=== PATIENT | female | born 1985 | race African-American/Black ===

== ENCOUNTER 2016-09-21 07:37 | Emergency (ER) | payer OTHER ==
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
[2016-09-21 08:41] VITALS: BP 110/68
== END 2016-09-21 08:40 | disposition home or self-care (01) ==
LOC: ED 07:37
DX: K02.9 Dental caries, unspecified (principal)
CPT/HCPCS: 99283

== ENCOUNTER 2016-09-28 09:59 | Outpatient (CLI) | payer OTHER ==
[2016-09-28 10:16] LABS: BASOPHILS % 0.6 (0.0-1.5); EOSINOPHILS % 4.3 % (0.0-6.8); LYMPHOCYTES # 1.6 # k/uL (0.6-4.0); MONOCYTES # 0.3 # k/uL (0.0-0.9); MONOCYTES % 6.5 % (0.0-11.0); NEUTROPHILS # 2.3 # k/uL (1.4-7.7)
[2016-09-28 10:51] LABS: eGFR (African) > 60; eGFR (Non-African) > 60
[2016-09-28 10:58] LABS: MEAN CORPUSCULAR HEMOGLOBIN 15.6 pg (28.0-34.0)
[2016-09-28 11:01] LABS: ANISOCYTOSIS 1+ (NEGATIVE); HYPOCHROMASIA 2+ (NEGATIVE); TARGET CELLS 1+ (NEGATIVE)
[2016-09-28 22:11] LABS: SERUM IRON 6 ug/dL (37-145)
== END 2016-09-28 10:00 ==
LOC: LAB 09:59
PROVIDERS: ATTEND Physician Assistant
DX: Z00.00 Encounter for general adult medical examination without abnormal findings (principal); D64.9 Anemia, unspecified
CPT/HCPCS: 36415; 80053; 82728; 83540; 83550; 85025; 85045

== ENCOUNTER 2017-02-16 21:16 | Emergency (ER) | payer OTHER ==
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
[2017-02-16 22:23] VITALS: BP 116/73
== END 2017-02-16 22:10 | disposition home or self-care (01) ==
LOC: ED 21:16 → SUPCPDRO 21:16 → ED 22:10
DX: S00.03XA Contusion of scalp, initial encounter (principal); S70.02XA Contusion of left hip, initial encounter; X58.XXXA Exposure to other specified factors, initial encounter; Y09 Assault by unspecified means; Y93.9 Activity, unspecified; Y99.9 Unspecified external cause status
CPT/HCPCS: 70450; 70487; 72170; 99283

== ENCOUNTER 2017-02-22 07:47 | Emergency (ER) | payer OTHER ==
[2017-02-22] MEDS: METOCLOPRAMIDE HCL 5 MG TABLET PO ONE (08:23)
[2017-02-22] MEDS ORDERED: 0.9 % SODIUM CHLORIDE 1,000 ML IV ONE (08:23)
[2017-02-22] MEDS: HYOSCYAMINE SULFATE 0.125 MG TAB.SUBL SL ONE (08:23)
[2017-02-22] MEDS: 0.9 % SODIUM CHLORIDE 1,000 ML IV SCH (08:25)
[2017-02-22 08:27] LABS: BASOPHILS % 0.9 (0.0-1.5); EOSINOPHILS % 5.1 % (0.0-6.8); MEAN CORPUSCULAR VOLUME 76.1 fl (80.0-100.0); MONOCYTES % 5.6 % (0.0-11.0); NEUTROPHILS # 2.7 # k/uL (1.4-7.7)
[2017-02-22 08:42] LABS: eGFR (African) > 60; eGFR (Non-African) > 60
[2017-02-22] MEDS: MAGNESIUM HYDROXIDE 400 MG/5 ML 30ML UDC PO ONE (09:45)
[2017-02-22] MEDS: LACTULOSE 10 GM/15 ML UDC PO SCH (09:45)
[2017-02-22 09:47] VITALS: BP 98/49
--- NOTE | 2017-02-22 10:27 | Diagnostic Imaging Report ---
SHIRIN PEARCE [facility] [address] [facility] [address] [address] Report Submission Date: Feb 22, 2017 9:05:24 AM CDT Patient Study Name: ANAYELI PEREZ Date: Feb 22, 2017 8:33:27 AM CDT Modality Type: CR Gender: F Description: CHEST,ABDOMEN : 81 Institution: [facility] Physician: SHIRIN PEARCE Obstructive series with chest x-ray CLINICAL HISTORY: Low midline abdominal pain for few days. FINDINGS: Examination of the chest in single upright view demonstrates the lungs to be clear. Cardiovascular and mediastinal silhouettes are within normal limits. Bony thorax is intact. Examination of the abdomen in supine and upright views demonstrates gas and stool in the colon. There is no evidence of obstruction or free air. Properitoneal fat lines are preserved. Bony structures are intact. IMPRESSION: Stool throughout the colon. No acute changes. Electronically signed on Feb 22, 2017 9:05:24 AM CDT by: Ernesto DUNN
--- NOTE | 2017-02-22 13:36 | ED Physician Documentation ---
Abdominal Pain - HISTORIAN Historian: patient - HPI Stated Complaint: abd pain Chief Complaint: Abdominal Pain Onset: days ago (5) Duration: waxing, waning Timing: still present Context: denies: out of country travel, bad food, recent trauma Severity: moderate Quality: cramping Associated Symptoms: nausea Exacerbated by: nothing Relieved by: nothing Further Comments: no - ROS CONST: no problems GI/: constipation CVS/RESP: none EYES/ENT: none MS/SKIN/LYMPH: none NEURO/PSYCH: none - SOCIAL HX Smoking History: non-smoker Alcohol Use: none Drug Use: none - FAMILY HX Family History: no significant history - PAST HX Past History: other (anemia) Other History: other (chronic constipation) Surgeries/Procedures: Immunizations: referred to PCP Home Medications: Ambulatory Orders Medication Instructions Recorded Sertraline HCl [Zoloft] 100 mg PO [id number] 02/22/17 Allergies/Adverse Reactions: Allergies Allergy/AdvReac Type Severity Reaction Status Date / Time tramadol AdvReac Vomiting Verified 02/22/17 08:04 - VITAL SIGNS Vital Signs: Vital Signs Temp Pulse Resp BP Pulse Ox 98.8 F 62 20 98/49 100 02/22/17 09:45 02/22/17 09:45 02/22/17 09:45 02/22/17 09:45 02/22/17 09:45 - REVIEWED ASSESSMENTS Nursing Assessment Reviewed: Yes Vitals Reviewed: Yes Progress - Results/Orders Results/Orders: cbc, cmp, amylase, ua, aas ordered - Progress Progress: Pt. given 10 mg reglan p.o., 0.25 mg hyoscyamine p.o. and 1 liter NS iv in er. Discharged after 30 cc prune juice, 10 mg lactulose and 2400 mg mom in er. Critical Care Note - Critical Care Note Total Time (mins): 0 ED Results Lab/Radiology - Lab Results Lab Results: Lab Results 02/22/17 02/22/17 08:25 08:25 WBC 4.60 K/ul K/ul (4.00-12.00) RBC 4.09 M/ul M/ul (3.90-5.20) Hgb 9.0 g/dL L g/dL (12.0-16.0) Hct 31.1 % L % (34.5-46.5) MCV 76.1 fl L fl (80.0-100.0) MCH 22.0 pg L pg (28.0-34.0) MCHC 28.9 g/dL L g/dL (30.0-36.0) RDW 19.7 % H % (11.3-14.3) Plt Count 244 K/mm3 K/mm3 (130-400) Neut % (Auto) 58.5 % % (39.0-79.0) Lymph % (Auto) 27.7 % % (16.0-50.0) [place] % (Auto) 5.6 % % (0.0-11.0) Eos % (Auto) 5.1 % % (0.0-6.8) Baso % (Auto) 0.9 (0.0-1.5) Neut # (Auto) 2.7 # k/uL # k/uL (1.4-7.7) Lymph # (Auto) 1.3 # k/uL # k/uL (0.6-4.0) [place] # (Auto) 0.3 # k/uL # k/uL (0.0-0.9) Eos # (Auto) 0.2 # k/uL # k/uL (0.0-0.6) Baso # (Auto) 0.0 # k/uL # k/uL (0.0-0.5) Reactive Lymphs % 2.2 % % (0.0-5.0) Reactive Lymphs # 0.1 # k/uL # k/uL (0.0-0.8) Sodium 137 mmol/L mmol/L (136-145) Potassium 3.9 mmol/L mmol/L (3.5-5.0) Chloride 104 mmol/L mmol/L (98-110) Carbon Dioxide 29 mmol/L mmol/L (20-32) BUN 11 mg/dL mg/dL (10-26) Creatinine 0.7 mg/dL mg/dL (0.4-1.5) Est GFR ( Amer) > 60 (60 - ) Est GFR (Non-Af Amer) > 60 (60 - ) Glucose 94 mg/dL mg/dL (70-99) Calcium 9.3 mg/dL mg/dL (8.5-10.5) Total Bilirubin 0.6 mg/dL mg/dL (0.2-1.2) AST 20 U/L U/L (0-41) ALT 11 U/L U/L (0-45) Alkaline Phosphatase 69 U/L U/L (46-116) Total Protein 7.2 g/dL g/dL (6.0-8.5) Albumin 4.4 g/dL g/dL (3.0-5.5) Amylase 35 U/L U/L (20-104) - Radiology Radiology Impressions: aas shows constipation, no bowel obstruction - Orders Orders: ED Orders Category Date Time Status Further Nursing Orders 1T Care 02/22/17 09:44 Active ABD SERIES PA CHEST [RAD] Stat Exams 02/22/17 Completed AMYLASE Routine Lab 02/22/17 08:25 Completed CBC/PLATELET/DIFF Routine Lab 02/22/17 08:25 Completed CMP DAILY Lab 02/22/17 08:25 Completed URINALYSIS Routine Lab 02/22/17 08:18 Ordered 0.9 % Sodium Chloride [Normal Saline] 1,000 ml Med 02/22/17 08:30 Discontinued IV .Q1H 0.9 % Sodium Chloride [Normal Saline] 1,000 ml Med 02/22/17 08:23 Discontinued IV .STK-MED Hyoscyamine Sulfate [Oscimin Sl] Med 02/22/17 08:19 Discontinued 0.125 mg SL 1T ONE Lactulose [Enulose] Med 02/22/17 11:00 Discontinued 10 gm PO 1100 Magnesium Hydroxide [Milk of Magnesia] Med 02/22/17 09:44 Discontinued 2,400 mg PO NOW ONE Metoclopramide HCl [Reglan] Med 02/22/17 08:18 Discontinued 10 mg PO NOW ONE Abdominal Pain Physical Exam - Physical Exam General Appearance: alert, moderate distress EENT: eye inspection normal, ENT inspection normal, pharynx normal, no signs of dehydration, JORGE, no nystagmus, TM's nml NECK: normal inspection, thyroid normal, supple RESPIRATORY: no resp distress, chest non-tender, breath sounds normal CVS: reg rate & rhythm, heart sounds normal, equal pulses, no murmur, no gallop , PMI nml, no JVD, no friction rub ABDOMEN: soft, no organomegaly, tenderness (generalized), decreased BS, other ( no tympany) BACK: normal inspection, no CVA tenderness SKIN: warm/dry, normal color. No: cyanosis, diaphoresis EXTREMITIES: non-tender, normal range of motion, no evidence of injury, no edema NEURO: oriented X3, CN's nml as tested, motor nml, sensation nml, mood/affect nml, cognition normal Vital Signs: Vital Signs Temp Pulse Resp BP Pulse Ox 98.8 F 62 20 98/49 100 02/22/17 09:45 02/22/17 09:45 02/22/17 09:45 02/22/17 09:45 02/22/17 09:45 Discharge Clincal Impression: Constipation Qualifiers: Constipation type: unspecified constipation type Qualified Code(s): K59.00 - Constipation, unspecified Referrals: Loni Sosa PA [Primary Care Provider] - 2 Days Home Medications: Ambulatory Orders Sertraline HCl [Zoloft] 100 mg PO [id number] 02/22/17 Comments: Home in improved condition with scripts for Linzess 140 mg p.o. daily #30, hyoscyamine 0.125 mg p.o. qid prn abd. pain, #15 and Niferex Forte DSC 1 p.o. daily #15. Condition: Stable Disposition: 01 HOME, SELF-CARE Decision to Admit: NO Decision Time: 09:55
== END 2017-02-22 09:59 | disposition home or self-care (01) ==
LOC: ED 07:47
DX: K59.00 Constipation, unspecified (principal)
CPT/HCPCS: 74022; 80053; 82150; 85025; A9270; J7030; 96360; 99283; S1016

== ENCOUNTER 2017-04-24 07:12 | Emergency (ER) | payer OTHER ==
[2017-04-24] MEDS ORDERED: ONDANSETRON HCL/PF 4 MG/ 2ML VIAL IVP ONE (07:29)
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
[2017-04-24 07:44] LABS: BASOPHILS % 0.3 (0.0-1.5); EOSINOPHILS % 5.8 % (0.0-6.8); MEAN CORPUSCULAR HEMOGLOBIN 21.3 pg (28.0-34.0); MEAN CORPUSCULAR VOLUME 75.6 fl (80.0-100.0); MONOCYTES % 3.5 % (0.0-11.0)
[2017-04-24 08:01] LABS: eGFR (African) > 60; eGFR (Non-African) > 60
[2017-04-24 08:13] LABS: AMPHETAMINE NEGATIVE ng/mL (<1000); BARBITURATES NEGATIVE ng/mL (<300); CANNABINOIDS NON NEGATIVE ng/mL (< 50); COCAINE NEGATIVE ng/mL (<300); METHAMPHETAMINE NEGATIVE ng/mL (<1000); METHYLENEDIOXYMETHAMPHETAMINE NEGATIVE ng/mL (<500); OPIATES NEGATIVE ng/mL (<300)
[2017-04-24 08:22] LABS: APPEARANCE,URINE Clear (CLEAR); COLOR,URINE Yellow (YELLOW); OCCULT BLOOD,URINE 1+ (NEGATIVE); UROBILINOGEN URINE 0.2 Eu (0.2-1.0)
[2017-04-24] MEDS ORDERED: NITROFURANTOIN 100 MG CAPSULE PO ONE ×2 (08:51)
[2017-04-24] MEDS ORDERED: PHENAZOPYRIDINE HCL 200 MG TABLET PO ONE ×2 (08:52→08:53)
[2017-04-24 09:03] VITALS: BP 123/75
--- NOTE | 2017-04-24 14:39 | Diagnostic Imaging Report ---
STEPHAN CORBETT [facility] [address] [facility] [address] [address] Report Submission Date: Apr 24, 2017 8:33:06 AM CDT Patient Study Name: ANAYELI PEREZ Date: Apr 24, 2017 7:55:34 AM CDT Modality Type: CR Gender: F Description: CHEST,ABDOMEN : 81 Institution: [facility] Physician: STEPHAN CORBETT Examination: Abdomen series History: Abdominal discomfort Findings: 4 views obtained of the chest and abdomen. Single view the chest demonstrates a normal cardiac and mediastinal. No focal infiltrate. No blunting of the costophrenic margins. No abnormal dilation of the large or small bowel. Air and stool throughout the large bowel. No suspicious calcification projecting over the renal fossa or the lower pelvic region. Pelvic phleboliths. Osseous structures are appropriate for age. Impression: No acute cardiopulmonary process. No obstruction. No suspicious calcifications by plain film sensitivity. Electronically signed on Apr 24, 2017 8:33:06 AM CDT by: Billy DUNN
== END 2017-04-24 08:50 | disposition home or self-care (01) ==
LOC: ED 07:12
DX: N30.00 Acute cystitis without hematuria (principal); D64.9 Anemia, unspecified
CPT/HCPCS: 74022; 80053; 80377; 81002; 84703; 85025; J2405; 96374; 99283; G0481; S1016

== ENCOUNTER 2017-08-30 10:56 | Outpatient (CLI) | payer OTHER ==
[2017-08-30 11:15] LABS: BASOPHILS % 0.7 (0.0-1.5); MEAN CORPUSCULAR HEMOGLOBIN 22.5 pg (28.0-34.0); MEAN CORPUSCULAR VOLUME 78.3 fl (80.0-100.0); MONOCYTES % 5.9 % (0.0-11.0); NEUTROPHILS # 2.2 # k/uL (1.4-7.7)
== END 2017-08-30 10:57 ==
LOC: LAB 10:56
PROVIDERS: ATTEND Physician Assistant
DX: D50.9 Iron deficiency anemia, unspecified (principal)
CPT/HCPCS: 36415; 85025

== ENCOUNTER 2017-11-20 13:08 | Emergency (ER) | payer OTHER ==
[2017-11-20 13:20] VITALS: BP 105/49
--- NOTE | 2017-11-20 13:24 | ED Physician Documentation ---
Lower Extremity Injury - HISTORIAN Historian: patient - HPI Stated Complaint: R ankle pain Chief Complaint: Lower Extremity Injury Additional Information: Patient fell down about 4 stairs today and rolled her right ankle. Patient did go to work and tried to bear weight on it. Pain got worse. Has noted some swelling to the lateral aspect of the ankle. Is having pain in the ankle and lower leg area. No other injuries noted. Where: home Context: twist - ROS CONST: no problems. denies: fever, chills - PAST HX Past History: other (anemia, depression) Allergies/Adverse Reactions: Allergies Allergy/AdvReac Type Severity Reaction Status Date / Time tramadol AdvReac Vomiting Verified 11/20/17 13:18 Home Medications: Ambulatory Orders Medication Instructions Recorded Sertraline HCl [Zoloft] 100 mg PO [id number] 02/22/17 Ferrous Sulfate [Feosol] 325 mg PO 1100 04/24/17 - SOCIAL HX Smoking History: pipe, less than 1 pack/day (1/2-1 ppd) Alcohol Use: none Drug Use: marijuana - FAMILY HX Family History: no significant history - VITAL SIGNS Vital Signs: Vital Signs Temp Pulse Resp BP Pulse Ox 97.3 F L 76 19 105/49 99 11/20/17 14:50 11/20/17 14:50 11/20/17 14:50 11/20/17 14:50 11/20/17 14:50 - REVIEWED ASSESSMENTS Nursing Assessment Reviewed: Yes Vitals Reviewed: Yes ED Results Lab/Radiology - Radiology Radiology Impressions: Examination: Plain film right ankle History: INJURY FROM FALL PATIENT UNABLE TO FLEX ANKLE (Hx) Findings: 3 views of the ankle demonstrates normal cortical margins. No fracture or dislocation. Talar dome is intact. Old unfused ossicle inferior to the fibula. Lateral soft tissue swelling. Soft tissue swelling. No joint effusion. Impression: Lateral soft tissue swelling. No acute appearing osseous process. - Orders Orders: ED Orders Category Date Time Status Air Splint 1T Care 11/20/17 14:40 Active ANKLE 3 VIEWS OR MORE [RAD] Stat Exams 11/20/17 Taken Ketorolac Tromethamine [Toradol] Med 11/20/17 13:31 Discontinued 60 mg IM NOW ONE Lower Extremities Injury Phy - Physical Exam General Appearance: no acute distress Hips: bilateral hip: non-tender, normal inspection, normal range of motion, no evidence of injury Legs: right: soft tissue tenderness (distal fibular area), left: non-tender, normal inspection, normal range of motion, no evidence of injury Knees: bilateral: non-tender, normal inspection, normal range of motion, no evidence of injury Ankle: right: limited range of motion, pain, soft tissue tenderness, swelling ( over lateral malleolus), left: non-tender, normal inspection, normal range of motion, no evidence of injury, N/A: deformity (none) Foot: bilateral foot: non-tender, normal inspection, normal range of motion, no evidence of injury Gait: limited by pain Neuro/Vascular/Tendon: no vascular compromise, motor nml, sensation nml Resp/CVS: chest non-tender, breath sounds nml, heart sounds nml, no resp. distress, lungs clear, reg. rate & rhythm Discharge Clincal Impression: Ankle sprain Qualifiers: Encounter type: initial encounter Involved ligament of ankle: anterior talofibular ligament Laterality: right Qualified Code(s): S93.491A - Sprain of other ligament of right ankle, initial encounter Referrals: Loni Sosa PA [Primary Care Provider] - 2 Days Additional Instructions: Keep ankle elevated with ice, wear air cast splint for the next three days then as needed. Take Aleve 2 tablets twice a day with food to help with pain. If needed may be partial weight bearing with crutches if unable to put weight on foot. Condition: Stable Disposition: 01 HOME, SELF-CARE Decision to Admit: NO Date of Decison to Admit: 11/20/17 Decision Time: 14:27
[2017-11-20] MEDS: KETOROLAC TROMETHAMINE 60 MG/2 ML VIAL IM ONE (13:40)
--- NOTE | 2017-11-20 16:54 | Diagnostic Imaging Report ---
THALIA REDD [facility] [address] [facility].[address] [address] Report Submission Date: November 20, 2017 2:15:19 PM CDT Patient Study Name: ANAYELI PEREZ Date: November 20, 2017 1:40:00 PM CDT Modality Type: DX Gender: F Description: LOWER EXTREMITY : 81 Institution: [facility] Physician: THALIA REDD Examination: Plain film right ankle History: INJURY FROM FALL PATIENT UNABLE TO FLEX ANKLE (Hx) Findings: 3 views of the ankle demonstrates normal cortical margins. No fracture or dislocation. Talar dome is intact. Old unfused ossicle inferior to the fibula. Lateral soft tissue swelling. Soft tissue swelling. No joint effusion. Impression: Lateral soft tissue swelling. No acute appearing osseous process. Electronically signed on November 20, 2017 2:15:19 PM CDT by: Billy DUNN
== END 2017-11-20 14:50 | disposition home or self-care (01) ==
LOC: ED 13:08
DX: S93.491A Sprain of other ligament of right ankle, initial encounter (principal); W19.XXXA Unspecified fall, initial encounter; Y92.9 Unspecified place or not applicable
CPT/HCPCS: 73610; J1885; 96372; 99283; L4350

== ENCOUNTER 2018-01-01 08:16 | Emergency (ER) | payer OTHER ==
--- NOTE | 2018-01-01 08:22 | ED Physician Documentation ---
General Adult - HISTORIAN Historian: patient - HPI Stated Complaint: anxiety Chief Complaint: General Adult Additional Information: 32 you female who has a history of anxiety issues in the past. This AM while working she started to have an anxiety attack and started to hyperventilate. She became dizzy and light headed and felt that she might pass out. EMS was contacted and the patient was brought to the ED for further evaluation and treatment. 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 denies: fever, sweating EYES/ENT: none CVS/RESP: chest pain (midsternal area, gone now). denies: shortness of breath, cough GI/: none MS/SKIN/LYMPH: none NEURO/PSYCH: dizziness, tingling, numbness, difficulty walking, anxiety. denies : fainting - PAST HX Past History: other (anxiety, anemia, ) Other History: none Surgeries/Procedures: none Allergies/Adverse Reactions: Allergies Allergy/AdvReac Type Severity Reaction Status Date / Time tramadol AdvReac Vomiting Verified 01/01/18 08:49 Home Medications: Ambulatory Orders Medication Instructions Recorded Sertraline HCl [Zoloft] 100 mg PO [id number] 02/22/17 Ferrous Sulfate [Feosol] 325 mg PO 1100 04/24/17 - SOCIAL HX Smoking History: greater than 1 pack/day (2-3 ppd) Alcohol Use: none Drug Use: none - FAMILY HX Family History: No - VITAL SIGNS Vital Signs: Vital Signs Temp Pulse Resp BP Pulse Ox 105/49 11/20/17 14:50 - REVIEWED ASSESSMENTS Nursing Assessment Reviewed: Yes Vitals Reviewed: Yes Progress - EKG/XRAY/CT EKG: NSR, nonspecific ST T wave chg General Adult Physical Exam - PHYSICAL EXAM GENERAL APPEARANCE: mild distress EENT: eye inspection normal, ENT inspection normal, pharynx normal, no signs of dehydration NECK: normal inspection, thyroid normal, supple RESPIRATORY: no resp distress, chest non-tender, breath sounds normal. No: wheezes, rales, rhonchi CVS: reg rate & rhythm, heart sounds normal, equal pulses, no murmur. No: tachycardia ABDOMEN: soft, no organomegaly, normal bowel sounds, no abdominal bruit, no distension, non-tender BACK: no CVA tenderness SKIN: warm/dry, normal color EXTREMITIES: non-tender, no edema NEURO: oriented X3, CN's nml as tested, motor nml, sensation nml, mood/affect nml (anxious), cognition normal Discharge Clincal Impression: Anxiety Referrals: Loni Sosa PA [Primary Care Provider] - 2 Days Additional Instructions: Continue with your current medications. Follow-up with your primary care provider for further advise for treatment for your anxiety issues. Try to avoid caffeine or other stimulants. Condition: Stable Disposition: 01 HOME, SELF-CARE Decision to Admit: NO Date of Decison to Admit: 01/01/18 Decision Time: 09:33
[2018-01-01 09:28] LABS: MEAN CORPUSCULAR HEMOGLOBIN 24.8 pg (28.0-34.0); MEAN CORPUSCULAR VOLUME 81.9 fl (80.0-100.0); eGFR (African) > 60; eGFR (Non-African) > 60
[2018-01-01 09:29] LABS: BASOPHILS % 0.5 (0.0-1.5); EOSINOPHILS % 5.3 % (0.0-6.8); MONOCYTES % 4.7 % (0.0-11.0); NEUTROPHILS # 1.6 # k/uL (1.4-7.7)
[2018-01-01 11:03] VITALS: BP 110/59
[2018-01-01 13:54] LABS: CANNABINOIDS NON NEGATIVE ng/mL (< 50)
[2018-01-01 13:55] LABS: METHYLENEDIOXYMETHAMPHETAMINE NEGATIVE ng/mL (<500)
== END 2018-01-01 10:52 | disposition home or self-care (01) ==
LOC: ED 08:16
DX: F41.9 Anxiety disorder, unspecified (principal)
CPT/HCPCS: 80053; 80377; 85025; 99284; G0481; S1016

== ENCOUNTER 2018-01-02 07:44 | Emergency (ER) | payer OTHER ==
[2018-01-02 07:52] VITALS: BP 96/53
== END 2018-01-02 08:00 ==
LOC: ED 07:44
DX: Z53.9 Procedure and treatment not carried out, unspecified reason (principal)
CPT/HCPCS: 99281

== ENCOUNTER 2018-02-23 17:00 | Emergency (ER) | payer OTHER ==
[2018-02-23] MEDS: KETOROLAC TROMETHAMINE 60 MG/2 ML VIAL IM ONE (17:40)
[2018-02-23 17:42] VITALS: BP 122/70
--- NOTE | 2018-02-23 17:42 | ED Physician Documentation ---
Fall - HISTORIAN Historian: patient - HPI Stated Complaint: fall Chief Complaint: Fall Additional Information: Tripped over puppy last evening, fell down 2 carpeted steps and landed on right knee then right glut area. No treatment attempted. Pain is worst right knee, then right glut. No other modifying factors or associated signs. Associated Symptoms:: no loss of consciousness - ROS CONST: no problems - PAST HX Past History: other (anemia, heavy periods) Allergies/Adverse Reactions: Allergies Allergy/AdvReac Type Severity Reaction Status Date / Time tramadol AdvReac Vomiting Verified 02/23/18 17:42 Home Medications: Ambulatory Orders Medication Instructions Recorded Sertraline HCl [Zoloft] 100 mg PO [id number] 02/22/17 Ferrous Sulfate [Feosol] 325 mg PO 1100 04/24/17 - SOCIAL HX Smoking History: non-smoker - FAMILY HX Family History: no significant history - VITAL SIGNS Vital Signs: Vital Signs Temp Pulse Resp BP Pulse Ox 96/53 01/02/18 07:44 - REVIEWED ASSESSMENTS Nursing Assessment Reviewed: Yes Vitals Reviewed: Yes Progress - Progress Progress: Report Submission Date: Feb 23, 2018 5:36:47 PM CDT Patient Study Name: ANAYELI PEREZ Date: Feb 23, 2018 5:17:35 PM CDT Modality Type: DX Gender: F Description: SPINE : 81 Institution: [facility] Physician: GE FRANCISCO Lumbar spine, three views History: Fall, back pain Findings: The vertebral body heights and alignments are normal. There is no evidence of acute fracture. No significant intervertebral disc space narrowing or facet arthropathy. The sacroiliac joints are normal. Impression: 1. No acute osseous abnormality. Electronically signed on Feb 23, 2018 5:36:47 PM CDT by: Juma Gonzalez Report Submission Date: Feb 23, 2018 5:58:27 PM CDT Patient Study Name: ANAYELI PEREZ Date: Feb 23, 2018 5:43:45 PM CDT Modality Type: DX Gender: F Description: LOWER EXTREMITY : 81 Institution: [facility] Physician: GE FRANCISCO Right knee, 2 views. History: Right knee pain Findings: The osseous structures are intact without acute fracture. The joint space and alignment are normal. There is no soft tissue swelling. No joint effusion. No joint effusion. Impression: 1. No acute osseous abnormality. Electronically signed on Feb 23, 2018 5:58:27 PM CDT by: Juma Gonzalez ED Results Lab/Radiology - Orders Orders: ED Orders Category Date Time Status KNEE XR 1 OR 2 V [KNEE 1 OR 2 VIEWS] [RAD] Stat Exams 02/23/18 Ordered LUMBAR SPINE XR 2 OR 3 VIEWS [L SPINE 2 OR 3 VIEWS] [ Exams 02/23/18 Taken RAD] Stat Ketorolac Tromethamine [Toradol] Med 02/23/18 17:11 Discontinued 60 mg IM NOW ONE Fall Physical Exam - Physical Exam General Appearance: alert, moderate distress (quite anxious) Head: non-tender, no swelling, no obvious injury Neck: painless ROM. No: pain with neck movement Eye: lids & conjunct. nml ENT: nml external inspection, no oral injury, airway nml Resp/CVS: breath sounds nml Abdomen: soft Neuro: CN's nml as tested, sensation nml, motor nml Skin: color nml (except bruising, suerficial abrasions right anterior andknee and lateral and just proximal ti right knee) Back: normal inspection, no CVA tenderness, no vertebral tenderness Extremities: atraumatic (except right knee as above), pelvis stable, other (antalgic gait) Joint: No: ligamentous instability (no drawer sign or significant lateral variance right knee) Discharge Clincal Impression: Contusion Qualifiers: Encounter type: initial encounter Contusion area: hip Laterality: right Qualified Code(s): S70.01XA - Contusion of right hip, initial encounter Contusion of knee, right Qualifiers: Encounter type: initial encounter Qualified Code(s): S80.01XA - Contusion of right knee, initial encounter Referrals: Loni Sosa PA [Primary Care Provider] - 2 Days Additional Instructions: Ice to any sore area for 30 minutes of each hour you are awake. You can take 1000 mg of tylenol as often as every eight hours, Cuevas can also take 600 mg ibuprofen with food every 8 hours for 5 days. Follow up with your provider as needed. Condition: Fair Disposition: 01 HOME, SELF-CARE Decision to Admit: NO Decision Time: 18:00
--- NOTE | 2018-02-23 18:53 | Diagnostic Imaging Report ---
GE FRANCISCO [facility] [address] Replaced By [facility] [address] [address] Report Submission Date: Feb 23, 2018 5:36:47 PM CDT Patient Study Name: ANAYELI PEREZ Date: Feb 23, 2018 5:17:35 PM CDT Modality Type: DX Gender: F Description: SPINE : 81 Institution: [facility] Physician: GE FRANCISCO Lumbar spine, three views History: Fall, back pain Findings: The vertebral body heights and alignments are normal. There is no evidence of acute fracture. No significant intervertebral disc space narrowing or facet arthropathy. The sacroiliac joints are normal. Impression: 1. No acute osseous abnormality. Electronically signed on Feb 23, 2018 5:36:47 PM CDT by: Juma DUNN
--- NOTE | 2018-02-23 18:54 | Diagnostic Imaging Report ---
GE FRANCISCO [facility] [address] [facility] [address] [address] Report Submission Date: Feb 23, 2018 5:58:27 PM CDT Patient Study Name: ANAYELI PEREZ Date: Feb 23, 2018 5:43:45 PM CDT Modality Type: DX Gender: F Description: LOWER EXTREMITY : 81 Institution: [facility] Physician: GE FRANCISCO Right knee, 2 views. History: Right knee pain Findings: The osseous structures are intact without acute fracture. The joint space and alignment are normal. There is no soft tissue swelling. No joint effusion. No joint effusion. Impression: 1. No acute osseous abnormality. Electronically signed on Feb 23, 2018 5:58:27 PM CDT by: Juma DUNN
== END 2018-02-23 18:09 | disposition home or self-care (01) ==
LOC: ED 17:00
DX: S70.01XA Contusion of right hip, initial encounter (principal); S80.01XA Contusion of right knee, initial encounter; W19.XXXA Unspecified fall, initial encounter; Y92.9 Unspecified place or not applicable; Y93.9 Activity, unspecified; Y99.9 Unspecified external cause status
CPT/HCPCS: 72100; 73560; J1885; 96372; 99283

== ENCOUNTER 2018-07-30 07:55 | Emergency (ER) | payer OTHER ==
--- NOTE | 2018-07-30 08:59 | ED Physician Documentation ---
Upper Extremity Injury - HISTORIAN Historian: patient - HPI Stated Complaint: L hand/arm pain Chief Complaint: Upper Extremity Injury Additional Information: punched wall 2 times llast noct due to anger has pain swelling lt hand plus limited ROM and pain lt shoulder - elbow =no c/o Onset: yesterday Where: home Severity: moderate Duration: persistent since Context: blow Associated Symptoms: tingling, loss of power to arms. denies: numbness distally, feeling loss Modifying Factors: pain on movement - ROS CONST: no problems CVS/RESP: none NEURO: none MS/SKIN/LYMPH: none GI/: denies: problems urinating - PAST HX Past History: other (anxiety depression on occasion) Allergies/Adverse Reactions: Allergies Allergy/AdvReac Type Severity Reaction Status Date / Time tramadol AdvReac Vomiting Verified 07/30/18 09:26 Home Medications: Ambulatory Orders Medication Instructions Recorded Ferrous Sulfate [Feosol] 325 mg PO 1100 04/24/17 - SOCIAL HX Smoking History: greater than 1 pack/day Alcohol Use: none Drug Use: marijuana (rarely) - FAMILY HX Family History: no significant history - VITAL SIGNS Vital Signs: Vital Signs Temp Pulse Resp BP Pulse Ox 98.3 F 60 16 114/52 98 07/30/18 08:00 07/30/18 10:42 07/30/18 10:42 07/30/18 10:42 07/30/18 10:42 - REVIEWED ASSESSMENTS Nursing Assessment Reviewed: Yes Vitals Reviewed: Yes ED Results Lab/Radiology - Radiology Radiology Impressions: no fracture or dislocation seen - Orders Orders: ED Orders Category Date Time Status Sling to Affected Extremity 1T Care 07/30/18 10:43 Active HAND 3 VIEWS OR MORE [RAD] Stat Exams 07/30/18 Completed SHOULDER 2 VIEWS OR MORE [RAD] Stat Exams 07/30/18 Completed URINE HCG [URINE HCG] Stat Lab 07/30/18 08:49 Ordered Upper Extremity Injury Physic - Physical Exam General Appearance: moderate distress Hand: bone tenderness, limited ROM, soft tissue tenderness. No: normal ROM Wrist: limited ROM, soft tissue tenderness Elbow/Forearm: normal inspection Shoulder: bone tenderness, pain, soft tissue tenderness Neuro/Vascular/Tendon: motor nml, sensation nml. No: abnml color, abnml warmth, abnml cap refill, ROM limited by pain Skin: warm,dry. No: cool, cyanotic, decubitus Head/ENT: nml inspection Neck/Back: nml inspection Resp/CVS: chest non-tender, breath sounds nml, heart sounds nml, lungs clear, reg. rate & rhythm Abdomen: non-tender Discharge Clincal Impression: lt hand and shoulder trauma/fall Referrals: Loni Sosa PA [Primary Care Provider] - 2 Days Comments: home sling tylenol or ibu -rt ed prn Condition: Good Disposition: 01 HOME, SELF-CARE Decision to Admit: NO Decision Time: 10:47
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
[2018-07-30 10:43] VITALS: BP 114/52
[2018-07-30] MEDS ORDERED: IPRATROPIUM/ALBUTEROL SULFATE 3 ML AMPUL.NEB NEB ONE (10:57)
== END 2018-07-30 10:39 | disposition home or self-care (01) ==
LOC: ED 07:55
DX: S69.92XA Unspecified injury of left wrist, hand and finger(s), initial encounter (principal); S49.92XA Unspecified injury of left shoulder and upper arm, initial encounter; W22.09XA Striking against other stationary object, initial encounter; Y93.9 Activity, unspecified; Y92.009 Unspecified place in unspecified non-institutional (private) residence as the place of occurrence of the external cause
CPT/HCPCS: 29105; 73030; 73130; 99282; 99284

== ENCOUNTER 2019-04-02 11:45 | Emergency (ER) | payer OTHER ==
--- NOTE | 2019-04-02 12:40 | ED Physician Documentation ---
Upper Respiratory Symptoms - HISTORIAN Historian: patient - HPI Stated Complaint: head & chest pain Chief Complaint: Cough/ Upper Respiratory Onset: hours Associated Symptoms: other (non productive cough). denies: fever, chills, earache, runny nose, sinus pain, sinus drainage, sore throat, chest pain, bloody cough, productive cough, shortness of breath, hurts to breathe Further Comments: yes (33 year old female patient presents with complaint of cough and vomiting x 1 this morning. Patient reports that she had difficulty smoking her cigarrette this morning. Patient denies fever, diarrhea, or shortness of breath. Complains of chest discomfort with frequent coughing. Patient has smoked 1/2 pack since age 15. 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.) - ROS CONST/EYES: denies: weakness, eye redness, eye itching, other CVS/RESP: none LYMPH: denies: leg swelling, rash, swollen glands, ankle swelling, other GI/: none NEURO/PSYCH: denies: fainting, dizziness, confusion, anxiety, depression, other MS/SKIN: denies: joint pain, muscle aches, rash, other - PAST HX Lung Disease: COPD Allergies/Adverse Reactions: Allergies Allergy/AdvReac Type Severity Reaction Status Date / Time tramadol AdvReac Vomiting Verified 04/02/19 12:06 Home Medications: Ambulatory Orders Medication Instructions Recorded Ferrous Sulfate [Feosol] 325 mg PO 1100 04/24/17 Benzonatate [Tessalon] 200 mg PO TID PRN #21 capsule 04/02/19 - SOCIAL HX Smoking History: cigarettes (1/2 pack per day) - FAMILY HX Family History: denies: none - VITAL SIGNS Vital Signs: Vital Signs Temp Pulse Resp BP Pulse Ox 97.5 F L 91 H 18 121/63 100 04/02/19 11:48 04/02/19 11:48 04/02/19 11:48 04/02/19 11:48 04/02/19 11:48 - REVIEWED ASSESSMENTS Nursing Assessment Reviewed: Yes Vitals Reviewed: Yes Progress - Progress Progress: Patient was able to keep down sprite while in the ER. Requesting note for work for afternoon shift. Upper Respiratory Symptoms - EXAM General Appearance: mild distress (strong smell of cigarrettes) EENT: eyes nml inspection, nml ENT inspection, lids & conjunct. nml, PERRL, ear nml, nose nml, pharynx nml, airway nml Respiratory: no resp. 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 Neuro/Psych: oriented x3, neuro intact, mood/affect nml, CN's nml as tested Discharge Clincal Impression: Cough, Tobacco abuse Prescriptions: Benzonatate [Tessalon] 200 mg PO TID PRN #21 capsule PRN Reason: Cough Referrals: Primary Doctor,No [Primary Care Provider] - 2 Days Additional Instructions: Cough drops as needed STOP SMOKING A prescription for cough medication was sent to the pharmacy Diet: Clear liquids Sprite/7-up Juices apple, white grape Gatorade/Powerade Jello Popsicles When tolerating clear liquids, advance to bland/brat diet - such as crackers, rice, Bananas, apples/applesauce or toast Return to the emergency department or call your doctor, if you are having severe abdominal pain, fever >101.0, or if there is blood in the vomit or diarrhea, you cannot keep down liquids or solid food or you are short of breath. Condition: Stable Disposition: 01 HOME, SELF-CARE Decision to Admit: NO Decision Time: 12:40
[2019-04-02 12:46] VITALS: BP 110/60
== END 2019-04-02 12:45 | disposition home or self-care (01) ==
LOC: ED 11:45
DX: R05 Cough (principal); F17.210 Nicotine dependence, cigarettes, uncomplicated
CPT/HCPCS: 99281; 99284

== ENCOUNTER 2019-06-23 14:43 | Emergency (ER) | payer SELFPAY ==
[2019-06-23] MEDS: 0.9 % SODIUM CHLORIDE 1,000 ML IV ONE (15:30)
[2019-06-23] MEDS: ONDANSETRON HCL/PF 4 MG/ 2ML VIAL IVP ONE (15:30)
[2019-06-23 15:35] LABS: eGFR (Non-African) > 60
[2019-06-23] MEDS: KETOROLAC TROMETHAMINE 15 MG/ML VIAL IV ONE (15:58)
[2019-06-23] MEDS: KETOROLAC TROMETHAMINE 30 MG/1ML VIAL ONE (15:58)
--- NOTE | 2019-06-23 16:15 | ED Physician Documentation ---
General Adult - HISTORIAN Historian: patient - HPI Stated Complaint: headache Chief Complaint: General Adult Onset: days ago (5) Timing: still present Severity: moderate Further Comments: yes (Pt is a 33 yo female with c/o headache x 5 days. Pt says, the last time I felt like this my hemoglobin was very low. Pt states that she has a hx of anemia. Pt is not a good historian. Pt states that she was hospitalized at [facility] in [place], [place] and received multiple blood transfusions. She says that she is supposed to be taking iron pills, but has not taken them for months. Pt has felt lightheaded. LMP "in May." No blood in bm's. No black bm's.) - ROS CONST: weakness, other (dizzy) EYES/ENT: none CVS/RESP: none GI/: nausea MS/SKIN/LYMPH: none NEURO/PSYCH: headache, dizziness - PAST HX Past History: other (anemia, ? thyroid d/o) Allergies/Adverse Reactions: Allergies Allergy/AdvReac Type Severity Reaction Status Date / Time tramadol AdvReac Vomiting Verified 06/23/19 15:35 Home Medications: Ambulatory Orders Medication Instructions Recorded Ferrous Sulfate [Feosol] 325 mg PO 1100 04/24/17 Benzonatate [Tessalon] 200 mg PO TID PRN #21 capsule 04/02/19 - SOCIAL HX Smoking History: cigarettes - FAMILY HX Family History: No (unk) - VITAL SIGNS Vital Signs: Vital Signs Temp Pulse Resp BP Pulse Ox 97.7 F 88 16 136/68 99 06/23/19 14:47 06/23/19 14:47 06/23/19 14:47 06/23/19 14:47 06/23/19 14:47 - REVIEWED ASSESSMENTS Nursing Assessment Reviewed: Yes Vitals Reviewed: Yes Progress - Progress Progress: NS 1 L IVF Toradol 15 mg IV headache improved/resolved d/w Dr. Bird. Pt will f/u in clinic on 06/25/19 at 11:30 am. Pending lab studies: Iron TIBC Ferritin Sickle Cell Retic. count ED Results Lab/Radiology - Lab Results Lab Results: Lab Results 06/23/19 06/23/19 15:20 15:20 WBC 7.30 K/ul K/ul (4.00-12.00) RBC 4.21 M/ul M/ul (3.90-5.20) Hgb 7.7 g/dL L g/dL (11.5-16.0) Hct 27.0 % L % (34.5-46.5) MCV 64.0 fl L fl (80.0-100.0) MCH 18.3 pg L pg (28.0-34.0) MCHC 28.7 g/dL L g/dL (30.0-36.0) RDW 16.2 % H % (11.3-14.3) Plt Count 381 K/mm3 K/mm3 (130-400) Sodium 140 mmol/L mmol/L (137-145) Potassium 3.6 mmol/L mmol/L (3.5-5.1) Chloride 108 mmol/L H mmol/L (98-107) Carbon Dioxide 27 mmol/L mmol/L (22-30) Anion Gap 8.6 BUN 10 mg/dL mg/dL (7-17) Creatinine 0.76 mg/dL mg/dL (0.52-1.04) Est GFR ( Amer) > 60 (60 - ) Est GFR (Non-Af Amer) > 60 (60 - ) Glucose 92 mg/dL mg/dL (74-106) Calcium 8.6 mg/dL mg/dL (8.4-10.2) Total Bilirubin 0.2 mg/dL mg/dL (0.2-1.3) AST 56 U/L H U/L (15-46) ALT 13 U/L U/L (0-35) Alkaline Phosphatase 85 U/L U/L (38-126) Total Protein 7.6 g/dL g/dL (6.3-8.2) Albumin 4.2 g/dL g/dL (3.5-5.0) - Orders Orders: ED Orders Category Date Time Status Place IV Lock 1T Care 06/23/19 15:03 Active CBC/PLATELET/DIFF Routine Lab 06/23/19 15:20 Completed CMP [CMP] Routine Lab 06/23/19 15:20 Completed UA [URINALYSIS] Routine Lab 06/23/19 Ordered URINE HCG Stat Lab 06/23/19 Ordered 0.9 % Sodium Chloride [Normal Saline] 1,000 ml Med 06/23/19 15:03 Active IV Q1H Ketorolac Tromethamine [Toradol] Med 06/23/19 15:52 Once 15 mg IV NOW ONE Ketorolac Tromethamine [Toradol] Med 06/23/19 15:51 Discontinued 30 mg .ROUTE .STK-MED ONE Ondansetron HCl/Pf [Zofran] Med 06/23/19 15:04 Discontinued 4 mg IVP NOW ONE General Adult Physical Exam - PHYSICAL EXAM GENERAL APPEARANCE: mild distress EENT: eye inspection normal, pharynx normal NECK: normal inspection, supple RESPIRATORY: no resp distress, chest non-tender, breath sounds normal CVS: reg rate & rhythm, heart sounds normal ABDOMEN: soft, no organomegaly, normal bowel sounds BACK: normal inspection, no CVA tenderness SKIN: pallor EXTREMITIES: non-tender, normal range of motion, no evidence of injury NEURO: oriented X3, motor nml, sensation nml Discharge Clincal Impression: headache, Anemia Referrals: Primary Doctor,No [Primary Care Provider] - Condition: Stable Disposition: 01 HOME, SELF-CARE Decision to Admit: NO Decision Time: 17:24
[2019-06-23 16:20] LABS: ANISOCYTOSIS 3+ (NEGATIVE); BASOPHILS % 0.3 % (0.0-1.5); HYPOCHROMASIA 3+ (NEGATIVE); NEUTROPHILS # 3.6 # k/uL (1.4-7.7); OVALOCYTES 3+ (NEGATIVE); SEGMENTED NEUTROPHILS % 55 % (39-79); TARGET CELLS 1+ (NEGATIVE); TEAR DROP CELLS 1+ (NEGATIVE)
[2019-06-23 16:52] LABS: APPEARANCE,URINE CLOUDY (CLEAR); COLOR,URINE YELLOW (YELLOW); OCCULT BLOOD,URINE NEGATIVE (NEGATIVE); URINE HCG NEGATIVE (NEGATIVE); UROBILINOGEN URINE 0.2 Eu (0.2-1.0)
[2019-06-23 18:19] VITALS: BP 130/66
== END 2019-06-23 17:36 | disposition home or self-care (01) ==
LOC: ED 14:43
DX: D64.9 Anemia, unspecified (principal); R51 Headache
CPT/HCPCS: 80053; 81002; 81025; 82728; 83021; 83540; 83550; 85025; 85045; 96361; 96374; 96375; 99282; 99284; J2405; J7030; S1016

== ENCOUNTER 2019-06-25 11:39 | Emergency (ER) | payer SELFPAY ==
--- NOTE | 2019-06-25 11:43 | ED Physician Documentation ---
General Adult - HISTORIAN Historian: patient - VITAL SIGNS Vital Signs: Vital Signs Temp Pulse Resp BP Pulse Ox 130/66 06/23/19 18:14 <Yumiko Kirkland - Last Filed: 06/25/19 11:42> - HPI Stated Complaint: headache Chief Complaint: General Adult Onset: hours Timing: still present Severity: moderate Further Comments: yes (Pt is a 33 yo female with c/o headache. Pt was seen here 06-23-19 with same complaint and was found to be anemic with hgb=7.7. Pt states she is supposed to be taking iron supplement medication, but has not been taking this. Pt had an appointment for further eval with Dr. Bird today, but did not have insurance. Pt did refill her iron supplement medication and has been taking it for the past 2 days.) - ROS CONST: weakness EYES/ENT: none CVS/RESP: none GI/: none MS/SKIN/LYMPH: none NEURO/PSYCH: headache - PAST HX Past History: other (anemia, anxiety) - SOCIAL HX Smoking History: cigarettes Alcohol Use: occasionally - FAMILY HX Family History: No - VITAL SIGNS Vital Signs: Vital Signs Temp Pulse Resp BP Pulse Ox 98.3 F 91 H 18 111/98 98 06/25/19 11:40 06/25/19 11:40 06/25/19 11:40 06/25/19 11:40 06/25/19 11:40 - REVIEWED ASSESSMENTS Nursing Assessment Reviewed: Yes Vitals Reviewed: Yes <Miguel Sanchez - Last Filed: 06/25/19 15:44> - PAST HX Allergies/Adverse Reactions: Allergies Allergy/AdvReac Type Severity Reaction Status Date / Time tramadol AdvReac Vomiting Verified 06/25/19 11:51 Home Medications: Ambulatory Orders Medication Instructions Recorded Ferrous Sulfate [Feosol] 325 mg PO 1100 04/24/17 Progress - Progress Progress: NS 1 L IVF Toradol 15 mg IV PRADO improved. hgb improved since 06-23-19, hgb 7.7 --> 8.7 Pt had restarted iron supplement. Will continue iron supplement. Follow up with Dr. Bird as soon as possible. <Miguel Sanchez - Last Filed: 06/25/19 15:44> ED Results Lab/Radiology - Lab Results Lab Results: Lab Results 06/25/19 11:55 WBC 5.90 K/ul K/ul (4.00-12.00) RBC 4.66 M/ul M/ul (3.90-5.20) Hgb 8.7 g/dL L g/dL (11.5-16.0) Hct 29.7 % L % (34.5-46.5) MCV 64.0 fl L fl (80.0-100.0) MCH 18.6 pg L pg (28.0-34.0) MCHC 29.2 g/dL L g/dL (30.0-36.0) RDW 16.4 % H % (11.3-14.3) Plt Count 330 K/mm3 K/mm3 (130-400) - Orders Orders: ED Orders Category Date Time Status IV Started NOW Care 06/25/19 11:55 Active CBC/PLATELET/DIFF Stat Lab 06/25/19 11:55 Completed CMP Stat Lab 06/25/19 11:55 Received IRON SERUM Stat Lab 06/25/19 Ordered 0.9 % Sodium Chloride [Normal Saline] 1,000 ml Med 06/25/19 11:55 Active IV NOW <Miguel Sanchez - Last Filed: 06/25/19 15:44> General Adult Physical Exam - PHYSICAL EXAM GENERAL APPEARANCE: mild distress EENT: pharynx normal NECK: normal inspection, supple RESPIRATORY: no resp distress, chest non-tender, breath sounds normal CVS: reg rate & rhythm, heart sounds normal ABDOMEN: soft, no organomegaly, normal bowel sounds BACK: normal inspection, no CVA tenderness SKIN: warm/dry, normal color EXTREMITIES: non-tender, normal range of motion, no evidence of injury NEURO: oriented X3, motor nml, sensation nml <Miguel Sanchez - Last Filed: 06/25/19 15:44> Discharge <Yumiko Kirkland - Last Filed: 06/25/19 11:42> Decision to Admit: NO Decision Time: 14:16 <Miguel Sanchez - Last Filed: 06/25/19 15:44> Clincal Impression: headache, anemia Referrals: Primary Doctor,No [Primary Care Provider] - Condition: Stable Disposition: 01 HOME, SELF-CARE
[2019-06-25] MEDS ORDERED: 0.9 % SODIUM CHLORIDE 1,000 ML IV ONE (11:55)
[2019-06-25 12:36] LABS: eGFR (Non-African) > 60
[2019-06-25 12:48] LABS: BASOPHILS % 0.3 % (0.0-1.5); NEUTROPHILS # 3.5 # k/uL (1.4-7.7)
[2019-06-25 12:50] LABS: ANISOCYTOSIS 2+ (NEGATIVE); HYPOCHROMASIA 2+ (NEGATIVE); OVALOCYTES 2+ (NEGATIVE); TARGET CELLS 2+ (NEGATIVE); TEAR DROP CELLS 1+ (NEGATIVE)
[2019-06-25] MEDS ORDERED: KETOROLAC TROMETHAMINE 15 MG/ML VIAL IV ONE (13:28)
[2019-06-25] MEDS ORDERED: KETOROLAC TROMETHAMINE 30 MG/1ML VIAL ONE (13:34)
[2019-06-25 14:46] VITALS: BP 112/67
== END 2019-06-25 14:33 | disposition home or self-care (01) ==
LOC: ED 11:39
DX: D64.9 Anemia, unspecified (principal); R51 Headache
CPT/HCPCS: 80053; 85025; 96360; 96374; 99282; 99284; J7030; 83540; S1016